=== PATIENT | female | born 1950 | race Caucasian/White ===

== ENCOUNTER → 2019-05-25 | Outpatient (CLI) | payer OTHER | END | disposition home or self-care (01) | LOC: RAD 12:02 | DX: M25.551 Pain in right hip (principal) ==

== ENCOUNTER 2019-05-30 08:35 | Outpatient (CLI) | payer OTHER | END 2019-05-30 08:42 | disposition home or self-care (01) | LOC: LAB 08:35 | DX: E55.9 Vitamin D deficiency, unspecified (principal); M85.88 Other specified disorders of bone density and structure, other site; E21.2 Other hyperparathyroidism; E88.89 Other specified metabolic disorders; M81.8 Other osteoporosis without current pathological fracture; E56.1 Deficiency of vitamin K ==

== ENCOUNTER 2023-12-04 08:03 | Outpatient (CLI) | payer OTHER ==
[~2023-12-04 08:03] MED LIST: FLECTOR1 EACH TOP
== END 2023-12-04 08:04 | disposition home or self-care (01) ==
LOC: NUCLEAR 08:03
DX: M48.56XS Collapsed vertebra, not elsewhere classified, lumbar region, sequela of fracture (principal); M47.817 Spondylosis without myelopathy or radiculopathy, lumbosacral region; M53.3 Sacrococcygeal disorders, not elsewhere classified
CPT/HCPCS: 78315; A9503